=== PATIENT | male | born 1975 | race Caucasian/White ===

== ENCOUNTER 2021-07-01 16:31 | Emergency (ER) | payer OTHER ==
[~2021-07-01] VITALS: Ht 180.3 cm; Wt 90.9 kg
[2021-07-01] MEDS ORDERED: normal saline 1000ML IV soln IVB ONE (16:50)
[2021-07-01] MEDS ORDERED: ondansetron/PF 4mg/2ml inj IV ONE (16:50)
[2021-07-01] MEDS ORDERED: acetaminophen 325mg tablet PO ONE (17:25)
[2021-07-01 17:38] LABS: BASOPHILS % (AUTO) 0.5 % (0-1); EOSINOPHILS % (AUTO) 0 % (0-6); HEMATOCRIT 45.4 % (42.0-52.0); HEMOGLOBIN 15.6 g/dl (14.0-17.9); LYMPHOCYTES % (AUTO) 25.1 % (21-51); MEAN CORPUSCULAR HEMOGLOBIN 30.2 PG (27.0-31.0); MEAN CORPUSCULAR HGB CONC 34.4 g/dL (33.0-36.5); MEAN CORPUSCULAR VOLUME 87.7 FL (78-98); MEAN PLATELET VOLUME 7.9 FL (7.4-10.4); MONOCYTES # (AUTO) 0.3 X10'3 (0-0.9); MONOCYTES % (AUTO) 6.3 % (2-12); NEUTROPHILS # (AUTO) 2.7 X10'3 (1.8-7.7); NEUTROPHILS % (AUTO) 68.1 % (42-75); PLATELET COUNT 154 X10'3 (140-440); RED BLOOD COUNT 5.18 X10'6 (4.70-6.10); RED CELL DISTRIBUTION WIDTH 12.7 % (11.5-14.5)
[2021-07-01 17:50] LABS: ALANINE AMINOTRANSFERASE 34 U/L (12-78); ALBUMIN 3.3 G/DL (3.4-5.0); ALBUMIN/GLOBULIN RATIO 0.8 (1.1-1.5); ALKALINE PHOSPHATASE 68 IU/L (46-116); ANION GAP 15 (8-16); ASPARTATE AMINO TRANSFERASE 45 U/L (10-37); BILIRUBIN,TOTAL 0.5 MG/DL (0.1-1.0); BLOOD UREA NITROGEN 20 MG/DL (7-18); CALCIUM 8.4 MG/DL (8.5-10.1); CHLORIDE 97 MMOL/L (99-107); CREATININE 1.33 MG/DL (0.60-1.10); GLUCOSE 104 MG/DL (70-104); POTASSIUM 3.9 MMOL/L (3.5-5.1); SODIUM 133 MMOL/L (135-145); TOTAL CARBON DIOXIDE 20.8 MMOL/L (24-32); TOTAL PROTEIN 7.6 G/DL (6.4-8.2); eGFR 58 ML/MIN
[2021-07-01] MEDS ORDERED: dexamethasone sod phosphate 10mg/ml inj IV STA (18:02)
[2021-07-01] MEDS ORDERED: ALBU6.7H9 INH (18:33)
[2021-07-01] MEDS ORDERED: ONDA4TAB6 PO (18:33)
[2021-07-01] MEDS ORDERED: DEC4T PO (18:33)
[2021-07-01] MEDS ORDERED: AZIT-31 PO (18:33)
[2021-07-01] MEDS ORDERED: famotidine/PF 10 mg/ml inj IV ONE (18:35)
[2021-07-01 19:39] VITALS: BP 124/76
== END 2021-07-01 19:12 | disposition home or self-care (01) ==
LOC: ER 16:32
DX: U07.1 COVID-19 (principal); J12.82 Pneumonia due to coronavirus disease 2019
CPT/HCPCS: 36415; 71045; 80053; 85025; 96374; 96375; 99284; J1100; J2405; J3490; J7030; 96361

== ENCOUNTER 2021-07-06 22:13 | Emergency (ER) | payer OTHER ==
[~2021-07-06] VITALS: Ht 180.3 cm; Wt 88.6 kg
[~2021-07-06 22:13] MED LIST: ALBU6.7H9 INH; AZIT-31 PO; DEC4T PO; ONDA4TAB6 PO
[2021-07-06 22:24] VITALS: BP 113/79
[2021-07-07] MEDS ORDERED: ALBU8HFA PO (00:08)
== END 2021-07-07 00:19 | disposition home or self-care (01) ==
LOC: ER 22:14
DX: U07.1 COVID-19 (principal); J12.82 Pneumonia due to coronavirus disease 2019; Z79.2 Long term (current) use of antibiotics; Z79.899 Other long term (current) drug therapy
CPT/HCPCS: 71045; 99283